=== PATIENT | female | born 1965 | race Caucasian/White ===

== ENCOUNTER 2019-05-08 06:49 | Outpatient (CLI) | payer BC, SELFPAY ==
--- NOTE | 2019-05-08 07:01 | ECG_ITS ---
NAME OF STUDY: LEXISCAN SESTAMIBI STRESS TEST INDICATION: Chest Pain, NOTE: Please note that this is the electrocardiogram portion of the Lexiscan/Sestamibi stress test. The perfusion scan will be documented separately. DATA: Baseline heart rate was 89 beats per minute. Baseline blood pressure was 153/84 millimeters of mercury. Target heart rate was 165. Maximum heart rate achieved was 118. which was 71 % of the predicted target heart rate. Maximum blood pressure was 186/90 millimeters of mercury. The reason for ending the test was completion of the protocol. The patient spit and shortness of breath which was then resolved before discharge. ELECTROCARDIOGRAM: BASELINE: Sinus rhythm. Normal axis. Otherwise, no ST-T changes suggestive of ischemia noted. No arrhythmia noted. EXERCISE: After Lexiscan injection, no ST-T changes suggestive of ischemic noted. No arrhythmia noted. 1. EKG not suggestive of ischemia 2. Lexiscan injection unremarkable. 3. Perfusion scan will be documented separately. Electronically Signed On 05-09-2019 18:52:17 GREENHOUSE MANAGER by Adria Santillan M.D. [id number]
--- NOTE | 2019-05-08 07:02 | NMCV_ITS ---
NM danay perf SPECT r/s* [id number] Jyoti Baxter Age: 53 Gender: F : 1965 Exam Date: 05/08/2019 07:59 Ordering Phys: Chely Fermin APN Technologist: LILA Beck Exam Location: [facility] Indications: CHEST PAIN STRESS TEST Please see separate [facility] for full findings IMAGE PROTOCOL Rest/Stress 1 Lexiscan Day Radiopharmaceutical Dose (mCi) Administration Site Administered by Rest: Tc-99m 10.9 IV LILA Beck Sestamibi Stress:Tc-99m 32.9 IV LILA Ramírez Sestamibi Rest: 08-May-2019 60 Discovery 630 Stress: 08-May-2019 30 Discovery 630 0.4mg Lexiscan. Supine position only as patient was unable to lay prone. SPECT RESULTS Technical Quality: Good Raw Data Analysis: Breast attenuation Image Corrections: No attenuation or motion correction applied Summed Stress Score: 3 Summed Rest Score: 0 Summed Difference Score: 3 PERFUSION FINDINGS Small sized perfusion abnormality of mild severity of mid anterior wall on stress images. FUNCTIONAL RESULTS (calculated via Gated SPECT) Stress Image LV EF (%): 83 Stress EDV (mL):71 TID: 0.91 Stress ESV (mL):12 FUNCTIONAL FINDINGS: The left ventricle is normal in size. Transient Ischemia Dilatation of 0.91. There is normal left ventricular systolic function. The left ventricular ejection fraction is normal with a value of 83%. There is normal left ventricular wall thickening. Normal end-diastolic volume of 71 mL and end-systolic volume of 12 mL. IMPRESSIONS 1. Small sized perfusion abnormality of mild severity of mid anterior wall, represents breast attenuation artifact. 2. Overall left ventricular systolic function is normal without regional wall motion abnormalities. 3. The left ventricular ejection fraction is normal with a value of 83%. 4. This study suggests a low likelihood of angiographically significant coronary artery disease. 5. No prior similar studies to compare. Clementine Miramontes MD (Electronically Signed) Final Date: 11 May 2019 11:16 S
[2019-05-08 07:14] VITALS: BMI 38.7
[2019-05-08] MEDS: regadenoson 0.4 Mg/5 ml Syringe IVP (08:50)
[2019-05-08 09:06] VITALS: BP 126/85; PULSE 95
== END 2019-05-08 06:50 | disposition home or self-care (01) ==
LOC: CDL 06:55
PROVIDERS: Family Provider Nurse Practitioner; Visit Provider Nurse Practitioner
DX: R07.9 Chest pain, unspecified (principal)
CPT/HCPCS: 78452; 93017; A9500; J2785

== ENCOUNTER 2025-02-17 15:37 | Observation (INO) | payer OTHER, SELFPAY ==
[2025-02-17] VITALS (33 sets, daily range): BP systolic 150–205; BP diastolic 84–109; PULSE 76–90; RESP 15–28; TEMP 37; O2SAT 91–98; BMI 39.6
[2025-02-17 16:17] LABS: Hematocrit 49.9 % (36-47); Hemoglobin 16.80 g/dL (11.27-16.99); Mean Corpuscular HGB Conc 33.7 g/dL (30-55); Mean Corpuscular Hemoglobin 32.7 pg (27-33); Mean Corpuscular Volume 97.1 fl (85-98); Nucleated Red Blood Cells % 0 %; Platelet Count 209 10^3/cmm (157-399); Red Blood Count 5.14 10^6/uL (3.85-5.65); White Blood Count 11.17 10^3/uL (3.29-11.43)
--- OUTSIDE RECORDS SUMMARY | 2025-02-17 16:31 | XMS_ITS | Clinical Summary ---
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 Gender Identity Not on file Sexual Orientation Not on file Plan of Treatment Health Maintenance Due Date Last Done Comments DTAP/TDAP/TD VACCINES (1 - Tdap) 08/23/1982 HPV/Cotest (21-29) 08/23/1984 CERVICAL CANCER SCREENING 08/23/1993 HPV/Cotest (30-65) 08/23/1993 PAP SMEAR 08/23/1993 BREAST CANCER SCREENING 2003 COLORECTAL SCREENING 08/23/2008 Colorectal Cancer Screening 08/23/2008 FIT-DNA Q 3 years 08/23/2008 FIT/FOBT Q 1 year 08/23/2008 Flex Sig/CT Colonography Q 5 years 08/23/2008 ZOSTER VACCINE (1 of 2) 08/23/2013 INFLUENZA VACCINE (#1) 2024 RSV VACCINE (60+ or ) (1 - 1-dose 75+ series) 08/23/2038 Insurance [employer] [id number]
[2025-02-17 16:36] LABS: Alanine Aminotransferase 21 U/L (0-33); Albumin Level 4.2 g/dL (3.5-5.2); Alkaline Phosphatase 165 U/L (35-105); Anion Gap 19.4 (5-19); Aspartate Amino Transferase 22 U/L (0-32); Blood Urea Nitrogen 13 mg/dL (8-23); Calcium 9.5 mg/dL (8.5-10.5); Carbon Dioxide 24 mmol/L (22-29); Chloride 98 mmol/L (98-107); Creatinine Clr Calc Pharmacy 103.8052; Globulin 3.2 g/dL (1.3-4.6); Glucose 176 mg/dL (65-115); Lipase 14 U/L (13-60); Osmolality Calculated 288 mOsm/kg (285-295); Potassium 4.4 mmol/L (3.5-5.1); Sodium 137 mmol/L (136-145); Total Protein 7.4 g/dL (6.6-8.7)
--- NOTE | 2025-02-17 16:41 | CTR_ITS ---
PROCEDURE INFORMATION: Exam: CT Abdomen And Pelvis With Contrast Exam date and time: 02/17/2025 4:57 PM Age: 59 years old Clinical indication: Abdominal pain; Additional info: Diffuse abdominal pain, ileocecal colostomy TECHNIQUE: Imaging protocol: Computed tomography of the abdomen and pelvis with contrast. Radiation optimization: All CT scans at this facility use at least one of these dose optimization techniques: automated exposure control; mA and/or kV adjustment per patient size (includes targeted exams where dose is matched to clinical indication); or iterative reconstruction. Contrast material: [id number]; Contrast volume: 100 ml; Contrast route: INTRAVENOUS (IV); COMPARISON: No relevant prior studies available. RADIATION DOSE METRICS: Total DLP (mGy-cm): 913.77 FINDINGS: Lungs: Subsegmental atelectasis at the lung bases. Diaphragm: Small right fat containing Bochdalek hernia. Liver: Unremarkable. No abnormally enhancing liver lesions. Gallbladder and biliary ducts: The gallbladder is distended and there is mild wall thickening with pericholecystic fat stranding. A 4 mm stone is present in the cystic duct. No biliary ductal dilatation. Pancreas: Unremarkable. No ductal dilation. Spleen: Unremarkable. Adrenal glands: The adrenal glands are unremarkable. Kidneys and ureters: Symmetric bilateral renal enhancement. No hydronephrosis. No radiopaque renal or urinary tract stones. Stomach and bowel: Status post colectomy with right lower quadrant ileostomy. Appendix: No evidence of appendicitis. Intraperitoneal space: No ascites or intraperitoneal free air. Vasculature: Atherosclerotic aortoiliac intimal calcifications. Lymph nodes: No abdominal or pelvic adenopathy. Urinary bladder: The urinary bladder is underdistended, limiting its evaluation. Reproductive: Fifth uterus Bones/joints: Thoracolumbar scoliosis. No acute fracture. Soft tissues: Small fat containing parastomal hernia. CT/CT abdomen pelvis w con* [id number] IMPRESSION: Findings compatible with acute cholecystitis, likely secondary to a 4 mm obstructing stone in the cystic duct. Recommend correlation with clinical and laboratory data.
[2025-02-17] MEDS: ondansetron 2 mg/ML SDV 2 mL 4 MG IVP ×2 (16:47→19:07)
--- NOTE | 2025-02-17 16:53 | ED_ITS ---
HPI - Abdominal Pain 2 General: Chief Complaint: Abdominal Pain Stated Complaint: NVD Time Seen by Provider: 02/17/25 16:31 History of Present Illness: Patient is a 59-year-old female with DM, insulin pump, Crohn's disease status post ileostomy without further issues since ileostomy, presents to the emergency room with right lower quadrant, mid umbilicus/periumbilical this, general abdominal pain. Context: Patient stated this started Saturday night, 3 nights ago. She has associated symptoms of nausea, vomiting, which make the pain worse. Her symptoms wax and wane. 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 Ileostomy has increased liquid stools. She has a midline abdominal scar. There has been no blood in her ileostomy. Associated Symptoms: Reports change in stool character, nausea and vomiting; Denies chills, diarrhea and fever(s) Related Data Home Medications ?Medication ?Instructions ?Recorded ?Confirmed albuterol sulfate 90 mcg/actuation inhalation 09/22/23 02/28/24 aerosol inhaler blood sugar diagnostic (Contour #10 ea 09/22/23 Next Test Strips) insulin lispro 100 unit/mL continuous subcutaneous inf usion 09/22/23 02/28/24 subcutaneous solution levothyroxine 137 mcg tablet mcg PO 09/22/23 02/28/24 losartan 50 mg tablet mg PO 09/22/23 02/28/24 meloxicam 15 mg tablet mg PO 09/22/23 02/28/24 tiotropium bromide 2.5 inhalation 09/22/23 02/28/24 mcg/actuation mist for inhalation (Spiriva Respimat) venlafaxine 150 mg mg PO 09/22/23 02/28/24 capsule,extended release 24 hr Previous Rx's ?Medication ?Instructions ?Recorded gabapentin 100 mg capsule 100 mg PO BID #30 caps 09/21 valacyclovir 1 gram tablet 1,000 mg PO TID 10 days #30 tabs 09/22/23 Allergies Allergy/AdvReac Type Severity Reaction Status Date / Time No Known Allergies Allergy Verified 02/17/25 16:02 Review of Systems 2 General: Reports: 10 or more systems reviewed and unremarkable except in HPI and below Const: Denies: fever(s) or chills ENMT: Denies: throat pain, ear or mastoid pain, nasal discharge, nasal congestion or sinus pain Card: Denies: chest pain Resp: Denies: dyspnea, non-productive cough or wheezing GI: Reports: abdominal pain, nausea, vomiting and change in stool character; Denies: diarrhea : Denies: flank pain or difficulty voiding Musc: Reports: joint stiffness; Denies: neck pain, back pain or extremity pain Skin/Breast: Denies: rash or pruritus Neuro: Denies: headache(s) or numbness in extremities Psych: Denies: anxiety, depression or difficulty concentrating PFSH ED 2 PFSH: Social History (Updated 05/08/19 @ 10:12 by Gosia Keyes RN) Smoking and tobacco/nicotine status: never used tobacco/nicotine Alcohol intake: current Alcohol intake frequency: holidays/special occasions only Substance/Drug Use: never Additional social history: Patient states she never smoked. She wants full CODE STATUS as discussed with Rhett Perez MD on 02/17/2025. 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[employer] [place] Physical Exam 2 Const: COMMON NORMALS: no acute distress, patient oriented x3, alert and well nourished HENMT: COMMON NORMALS: normocephalic, atraumatic and external ears normal H EAD & SCALP: normocephalic and atraumatic EXTERNAL EAR: Yes external ears normal Eye: COMMON NORMALS: Equal, round and reactive pupils present and EOMs intact bilaterally PUPIL: Yes Equal, round and reactive pupils present Lymph: LYMPHATIC: no lymphadenopathy noted Resp: COMMON NORMALS: normal respiratory effort and clear to auscultation bilaterally AUSCULTATION: clear to auscultation bilaterally Cardio: COMMON NORMALS: regular rate and regular rhythm RATE: regular rate RHYTHM: regular rhythm GI: COMMON NORMALS: Soft to palpation and No hepatosplenomegaly present I NSPECTION: No Fluid wave present and Yes other (Negative psoas) AUSCULTATION: Yes normoactive bowel sounds and Yes Hyperactive bowel sounds present P ALPATION: Yes Soft to palpation, Yes Tenderness to palpation present (GI) Details: LLQ, RLQ, LUQ and RUQ, Yes Guarding due to palpation present (GI) in the LLQ, in the RLQ, in the LUQ and in the RUQ, No Rigid due to palpation and Yes No hepatosplenomegaly present PERCUSSION: no fluid wave : COMMON NORMALS: Yes no CVA tenderness BLADDER/KIDNEY EXAM: Yes no CVA tenderness Back/Pelvis: COMMON NORMALS: no CVA tenderness Extremity: COMMON NORMALS: normal to inspection, full ROM and capillary refill normal Neuro: COMMON NORMALS: patient oriented x3 SENSORIUM/ORIENTATION: Yes alert SPEECH: speech normal GAIT: Yes Normal gait present Psych: COMMON NORMALS: cooperative Course 2 Reevaluation(s): Reevaluation #1: Improved somewhat after morphine rating pain at approximately 5?6 Reevaluation #2: Updated [facility] already [facility] and is out of beds. Patient declined more morphine Consultations: Consultation #1: [facility] out of beds Consultation #2: [facility]?still awaiting contact[facility] Consultation #3: [facility] stated we do not need ERCP, intraoperative cholangiogram or just remove the gallbladder Additional Consultation(s): [facility], surgeon agreed this could be done locally without intraoperative cholangiogram. Discussed with Dr. Bowen, he has accepted patient, as consultation, patient with history of Crohn's, wanted hospitalist to admit. She also has history of diverting ileostomy due to her Crohn's disease, and has higher risk for open. Discussed with patient. Patient will like to stay here for possible lap eladia with high risk for open Eladia Vital Signs: Vital signs: Vital Signs Temperature 98.6 F 02/17/25 15:58 Pulse Rate 86 02/17/25 23:00 Respiratory Rate 18 02/17/25 23:00 Blood Pressure 176/87 02/17/25 23:00 Pulse Oximetry 96 02/17/25 23:00 Oxygen Delivery Me thod Nasal Cannula 02/17/25 23:00 Oxygen Flow Rate 2 02/17/25 23:00 MDM - Abdominal Pain Medical Decision Making Patient is a pleasant 59-year-old female with history of Crohn's status post ileostomy without further recurrence, presents to the ED with waxing and waning abdominal pain, since Saturday, 3 nights ago, however worse and consistent today. On exam, she is diffusely tender. Initial CBC shows hemoconcentration most likely from her nausea and vomiting. CT of the abdomen and pelvis is pending. IV fluids have been ordered as well as Zofran. Will address narcotic analgesic as necessitated by evaluation. Cholecystitis was noted with cystic duct. Initially discussed with Linda with concern of needing intraoperative cholangiogram. Linda Nunez stated no due to wanting ERCP backup. Discussed with [facility], that [facility] discussed with [facility], Linda Nunez then put me in touch with the surgeon, Dr. Mary, that was happy to accept patient, however believe our surgeon here could handle the issue. Discussed with her surgeon here, Dr. Bowen, that is happy to take the patient as long as patient understands they are higher risk for open cholecystectomy. Patient states understanding, as well, Dr. Mary stated they are just at high risk for open at [facility]. In any event, consultation was excepted, Dr. Bowen did asked that hospitalist primarily admit since patient has history of DM on insulin pump, and previous ileostomy due to Crohn's. Dr. Britton requested Zosyn every 8 hours, morphine every 4 as needed, Zofran every 6 as needed, heparin 5000 units SQ 3 times daily. N.p.o. after midnight, clear liquid diet until then Medical Records I reviewed the patient's medical records. Lab Data I reviewed the patient's lab results. 02/17/25 16:12 02/17/25 16:12 Labs/Radiology: Radiology Impressions Abdomen/Pelvis CT 02/17/25 16:41 IMPRESSION: Findings compatible with acute cholecystitis, likely secondary to a 4 mm obstructing stone in the cystic duct. Recommend correlation with clinical and laboratory data. Abdomen Ultrasound 02/17/25 18:17 IMPRESSION: Findings compatible with acute cholecystitis due to obstructing 5 mm stone in the cystic duct. Laboratory Results WBC 11.17 10^3/uL (3.29-11.43) 02/17/25 16:12 RBC 5.14 10^6/uL (3.85-5.65) 02/17/25 16:12 Hgb 16.80 g/dL (11.27-16.99) 02/17/25 16:12 Hct 49.9 % (36-47) H 02/17/25 16:12 MCV 97.1 fl (85-98) 02/17/25 16:12 MCH 32.7 pg (27-33) 02/17/25 16:12 MCHC 33.7 g/dL (30-55) 02/17/25 16:12 RDW 12.5 % (12.1-15.1) 02/17/25 16:12 Plt Count 209 10^3/cmm (157-399) 02/17/25 16:12 MPV 9.6 fL (7.4-10.4) 02/17/25 16:12 Neut % (Auto) 91.5 % 02/17/25 16:12 Lymph % (Auto) 4.2 % 02/17/25 16:12 [place] % (Auto) 3.2 % 02/17/25 16:12 Eos % (Auto) 0.2 % 02/17/25 16:12 Baso % (Auto) 0.5 % 02/17/25 16:12 Neut # (Auto) 10.22 10^3/uL (1.8-7.7) H 02/17/25 16:12 Lymph # (Auto) 0.5 10^3/uL (0.8-4.8) L 02/17/25 16:12 [place] # (Auto) 0.4 10^3/uL (0.2-0.9) 02/17/25 16:12 Eos # (Auto) 0.0 10^3/uL (0.0-0.8) 02/17/25 16:12 Baso # (Auto) 0.1 10^3/uL (0.0-0.1) 02/17/25 16:12 Nucleated RBC % (auto) 0 % 02/17/25 16:12 Nucleated RBCs # 0.0 /100WBC 02/17/25 16:12 Sodium 137 mmol/L (136-145) 02/17/25 16:12 Potassium 4.4 mmol/L (3.5-5.1) 02/17/25 16:12 Chloride 98 mmol/L (98-107) 02/17/25 16:12 Carbon Dioxide 24 mmol/L (22-29) 02/17/25 16:12 Anion Gap 19.4 (5-19) H 02/17/25 16:12 BUN 13 mg/dL (8-23) 02/17/25 16:12 Creatinine 0.6 mg/dL (0.5-0.9) 02/17/25 16:12 GFR Calculation 101.6 mL/min (90-130) 02/17/25 16:12 Glucose 176 mg/dL (65-115) H 02/17/25 16:12 POC Glucose 142 mg/dL (70-110) H 02/17/25 19:02 Calculated Osmolality 288 mOsm/kg (285-295) 02/17/25 16:12 Calcium 9.5 mg/dL (8.5-10.5) 02/17/25 16:12 Total Bilirubin 1.1 mg/dL (0.15-1.2) 02/17/25 16:12 AST 22 U/L (0-32) 02/17/25 16:12 ALT 21 U/L (0-33) 02/17/25 16:12 Alkaline Phosphatase 165 U/L (35-105) H 02/17/25 16:12 Total Protein 7.4 g/dL (6.6-8.7) 02/17/25 16:12 Albumin 4.2 g/dL (3.5-5.2) 02/17/25 16:12 Globulin 3.2 g/dL (1.3-4.6) 02/17/25 16:12 Lipase 14 U/L (13-60) 02/17/25 16:12 Urine Color Yellow (Yellow) 02/17/25 17:18 Urine Appearance Clear (CLEAR) 02/17/25 17:18 Urine pH 5.5 (5-7) 02/17/25 17:18 Ur Specific [place] 1.065 (1.005-1.030) H 02/17/25 17:18 Urine Protein 1+ (Negative) A 02/17/25 17:18 Urine Glucose (UA) Negative (Normal) 02/17/25 17:18 Urine Ketones 4+ (Negative) 02/17/25 17:18 Urine Blood Non-haemolysed trace (Negative) 02/17/25 17:18 Urine Nitrate Negative (Negative) 02/17/25 17:18 Urine Bilirubin Negative (Negative) 02/17/25 17:18 Urine Urobilinogen 0.2 mg/dL (Negative) 02/17/25 17:18 Ur Leukocyte Esterase Negative (Negative) 02/17/25 17:18 Urine RBC 0-2 /hpf (0-2) 02/17/25 17:18 Urine WBC 6-10 /hpf (0-5) 02/17/25 17:18 Ur Squamous Epith Cells 0-5 /hpf (0-5) 02/17/25 17:18 Amorphous Sediment Not Reportable 02/17/25 17:18 Urine Bacteria None seen /hpf (NONE) 02/17/25 17:18 Hyaline Casts 0.40 /lpf 02/17/25 17:18 All radiology interpretation(s) finalized by discharge Discharge Plan Discharge Patient Disposition: Admitted As Inpatient Admit Provider: Rhett Perez Clinical Impression: Acute cholecystitis Condition: Stable Discharge Diet: Clear Liquid Discharge Activity: Resume usual activity Coding Level of Care Code ED Production Operator for Kenneth Dixon
[2025-02-17] MEDS: iohexol 350 mg/mL 500 mL Btl (per mL) IV (17:02)
[2025-02-17 17:32] LABS: Glucose Urine UA Negative (Normal); Nitrate Urine Negative (Negative)
[2025-02-17 17:34] LABS: Add Urine Microscopic? YES
[2025-02-17 17:36] LABS: Specific Gravity, Urine 1.065 (1.005-1.030)
[2025-02-17] MEDS: morphine 4 mg/mL SDV 1 mL IVP ×2 (17:56→18:55)
--- NOTE | 2025-02-17 18:17 | USR_ITS ---
PROCEDURE INFORMATION: Exam: US Abdomen, Limited; Right Upper Quadrant Exam date and time: 02/17/2025 6:36 PM Age: 59 years old Clinical indication: Abdominal pain; Epigastric; Additional info: Right upper quadrant abdominal pain TECHNIQUE: Imaging protocol: Real time ultrasound of the abdomen with image documentation. Limited exam focused on the right upper quadrant. COMPARISON: CT abdomen pelvis w con* [id number] 02/17/2025 4:57 PM FINDINGS: Liver: Normal. No masses. Gallbladder: Layering sludge in the gallbladder. The gallbladder wall is thickened up to 6 mm. There is a 5 mm calcified stone in the cystic duct. Positive sonographic Aaron's sign. Biliary ducts: The common bile duct measures 5 mm. No stones. No dilation. Pancreas: Visualized pancreas is unremarkable. Right kidney: Normal. No mass. No hydronephrosis. US/US abdomen limited [id number] IMPRESSION: Findings compatible with acute cholecystitis due to obstructing 5 mm stone in the cystic duct.
[2025-02-17] MEDS: piperacillin-tazobactam 3.375 GM in sodium chloride 0.9% (plus) 50 ML IV (23:04)
--- NOTE | 2025-02-17 23:11 | PM.HP ---
Providers/Chief Complaint Admitting Physician: Rhett Perez MD Primary Care Provider: Elana Israel NP Chief Complaint: NVD History of Present Illness Jyoti Baxter is a 59 year old female comes in with 3 days of nausea vomiting abdominal pain off and on but now worse. She had abdominal pain right upper quadrant on exam and ultrasound shows 4 mm cystic duct stone bilirubin 1.[address] scan done first shows the stone as well. Patient has had history of Crohn's with right lower quadrant ileostomy placed at age 26. She has not had no further recurrence of Crohn's. Dr. Bowen has reviewed the images and is optimistic that the patient can start with a laparoscopic surgery and duct exploration to remove the stone or push the stone into the intestine. There is chance of needing open surgery and patient has been counseled regarding that possibility. Dr. Bowen requested hospitalist to admit the patient. 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 Patient cannot afford continuous blood glucose monitor up until now so uses fingerstick Obesity Patient noted to have her sats drop less than 88% here when she fell asleep so was placed on O2. Patient wonders if she has sleep apnea but notably she also had some pain meds Review of Systems Narrative: General No measured fevers but subjective warm and chilled Cardiovascular no chest pain palpitations or edema she does have dyspnea with walking uphill but denies acute dyspnea with limited stairs. She states she can keep up with other people that are overweight or out of shape. Respiratory some cough and wheezing she has asthma no dysuria hematuria GI as per HPI with nausea vomiting no hematemesis denies diarrhea constipation Neuro no history of seizures or strokes Malignancy history negative Heme no history of blood clots in legs or lungs Psych no hospitalizations for mental health Medications/Allergies Home Medications ?Medication ?Instructions ?Recorded ?Confirmed ?Last Taken ?Type albuterol sulfate 90 mcg/actuation inhalation 09/22/23 02/28/24 Unknown History aerosol inhaler blood sugar diagnostic (Contour #10 ea 09/22/23 02/28/24 Unknown History Next Test Strips) gabapentin 100 mg capsule 100 mg PO BID #30 caps 09/22/23 02/28/24 Unknown Rx insulin lispro 100 unit/mL continuous subcutaneous infusion 09/22/23 02/28/24 Unknown History subcutaneous solution levothyroxine 137 mcg tablet mcg PO 09/22/23 02/28/24 Unknown History losartan 50 mg tablet mg PO 09/22/23 02/28/24 Unknown History meloxicam 15 mg tablet mg PO 09/22/23 02/28/24 Unknown History tiotropium bromide 2.5 inhalation 09/22/23 02/28/24 Unknown History mcg/actuation mist for inhalation (Spiriva Respimat) valacyclovir 1 gram tablet 1,000 mg PO TID 10 days #30 tabs 09/22/23 02/28/24 Unknown Rx venlafaxine 150 mg mg PO 09/22/23 02/28/24 Unknown History capsule,extended release 24 hr Allergies Allergy/AdvReac Type Severity Reaction Status Date / Time No Known Allergies Allergy Verified 02/17/25 16:02 PFSH Acute PFSH: Medical History (Updated 02/17/25 @ 23:23 by Rhett Perez MD) HTN (hypertension) Insulin pump in place Obesity (BMI 30-39.9) Hx of Crohn's disease Diabetes Social History (Updated 02/17/25 @ 23:18 by Rhett Perez MD) Smoking and tobacco/nicotine status: never used tobacco/nicotine Alcohol intake: current Alcohol intake frequency: holidays/special occasions only Substance/Drug Use: never Additional social history: Patient states she never smoked. She wants full CODE STATUS as discussed with Rhett Perez MD on 02/17/2025. 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 [employer] [facility] [place] Vitals/I&O/Wt Last Vital Signs Temp 98.6 F 02/17/25 15:58 Pulse 86 02/17/25 23:00 Resp 18 02/17/25 23:00 BP 176/87 02/17/25 23:00 Pulse Ox 96 02/17/25 23:00 O2 Del Method Nasal Cannula 02/17/25 23:00 O2 Flow Rate 2 02/17/25 23:00 02/17/25 02/17/25 02/18/25 14:59 22:59 06:59 Intake Total 1000 / 1000 Balance 1000 / 1000 Weight last 48 hrs Weight 95.254 kg Physical Exam Narrative: General well-developed well-nourished obese female in no acute cardiopulmonary stress Oropharynx Mallampati 1 no exudate and is have my recumbent position CV regular rate and rhythm no loud murmur Lungs good air movement trace and expiratory wheezes no crackles Abdomen positive bowel tones soft right upper quadrant tenderness noted marked but no rebound Calves trace ankle edema Skin warm and dry Mentation alert and oriented x 3 good historian Data 02/17/25 16:12 02/17/25 16:12 A&P Assessment and plan 1. Acute cholecystitis: Patient admitted with acute cholecystitis and cystic duct stone looks to be fairly distal. Dr. Bowen has requested n.p.o. status with intention to operate in the morning. 4 mm stone anticipated to be managed laparoscopically. Patient has history of abdominal surgery with a vertical incisional scar without keloid formation externally at least 2. Diabetes: Patient will manage this with her insulin pump. Check fingerstick blood glucose here before every meal and nightly as well as as needed 3. Insulin pump in place: Patient will manage her insulin pump 4. Hx of Crohn's disease: Stable not active since age 26 5. Obesity (BMI 30-39.9): Patient on clear liquid diet until n.p.o. after midnight. After that should be on a weight loss diet 1600 yolie daily PDMP PDMP Reviewed: Not Reviewed Attestations Medical Necessity Statement*: Patient admitted to hospital with acute cholecystitis and anticipate hospitalization 2 midnights Coding Level of Care Code 20555 Diagnoses Acute cholecystitis K81.0 Diabetes E11.[address] Z96.41 Hx of Crohn's disease Z87.19 Obesity (BMI 30-39.9) E66.9 Time Spent (min) 75
[2025-02-17] MEDS: metoprolol tartrate 1 mg/1 mL SDV 5 mL 5 MG IVP (23:42)
[2025-02-18] VITALS (32 sets, daily range): BP systolic 95–189; BP diastolic 52–116; PULSE 60–120; RESP 14–24; TEMP 36.7–38.1; O2SAT 91–98
--- NOTE | 2025-02-18 00:39 | PC.NURSE ---
ER; recestelita'd report from [facility] at 00:05, pt arrived via stretcher from ER at 00:38
--- NOTE | 2025-02-18 00:53 | PC.NURSE ---
pt reported having started w stomach pain,n/v since Saturday w freq dry heeves, went on through Saturday. 10pm at night , found old zofran and took old med and it helped. Constant output (have Ileostomy -old Chrons). hx DM , HTN.
[2025-02-18] MEDS: morphine 4 mg/mL SDV 1 mL IVP ×2 (01:10→08:48)
[2025-02-18] MEDS: ondansetron 2 mg/ML SDV 2 mL 4 MG IVP ×3 (01:10→15:03)
--- NOTE | 2025-02-18 04:58 | PC.NURSE ---
pt reported slept well- pain is better 3-4
--- NOTE | 2025-02-18 07:39 | P.PN_ITS ---
Subjective 2 Subjective: Patient is a very pleasant 59 yo female who was seen and examined at bedside on hospital rounds today. Patient is sitting up in bed with continued abdominal pain and nausea. Patient is NPO currently awaiting surgical interventions with cholecystectomy. Patient has stable vital signs with pending labs this morning. Surgical interventions with general surgeon Dr. Bowen. Expect patient to remain inpatient through tonight at least, will review post operatively. Vitals/I&O/Wt Last Vital Signs Temp 98.3 F 02/18/25 04:00 Pulse 88 02/18/25 04:15 Resp 18 02/18/25 04:15 BP 127/68 02/18/25 04:55 Pulse Ox 94 02/18/25 04:15 O2 Del Method Nasal Cannula 02/18/25 04:15 O2 Flow Rate 2 02/18/25 04:15 02/17/25 02/18/25 02/18/25 22:59 06:59 14:59 Intake Total 1000 / 1000 60 / 1060 Balance 1000 / 1000 60 / 1060 Weight last 48 hrs Weight 90.718 kg Weight 90.718 kg Weight 95.254 kg Physical Exam 2 Narrative: General well-developed well-nourished obese female in no acute cardiopulmonary stress Oropharynx Mallampati 1 no exudate and is have my recumbent position CV regular rate and rhythm no loud murmur Lungs good air movement trace and expiratory wheezes no crackles Abdomen positive bowel tones soft right upper quadrant tenderness noted marked but no rebound Calves trace ankle edema Skin warm and dry Mentation alert and oriented x 3 good historian Data 02/17/25 16:12 02/18/25 09:57 A&P Assessment and plan 1. Acute cholecystitis: Patient admitted with acute cholecystitis and cystic duct stone looks to be fairly distal. Dr. Bowen has requested n.p.o. status with intention to operate in the morning. 4 mm stone anticipated to be managed laparoscopically. Patient has history of abdominal surgery with a vertical incisional scar without keloid formation externally at least 2. Diabetes: 3. Insulin pump in place: 4. Hx of Crohn's disease: 5. Obesity (BMI 30-39.9): Plan: Acute Cholecystitis with cystic duct stone (4mm stone) - NPO - Greatly appreciate General surgical consultation with - Laparoscopic cholecystectomy this afternoon - Multi-modal pain control - IV Zosyn q8hr DM-II Neuropathy - Insulin Pump with fingersticks - Continue gabapentin 100mg PO BID - NPO currently, when diet continues will be low fat ADA Hypothyroidism - Continue Levothyroxine 137mcg PO Daily Hypertension - Continue Losartan 50mg Daily - PRN metoprolol Hx of Crohn's Disease - Stable and not active since age 26 - Supportive measures Depression - Stable - Continue Effexor 150mg PO Daily Ashtma Seasonal allergies - PRN Albuterol - Spiriva Daily - Continue Singulair 10mg Nightly Obesity - BMI 37.8 - Lifestyle modifications and weight loss recommended VTE PPX: SCD's GI PPX: PPI Code Status: Full Code PDMP PDMP Reviewed: Not Reviewed Attestations 2 Medical Necessity Statement*: Patient admitted to hospital with acute cholecystitis and anticipate hospitalization 2 midnights Coding Level of Care Code 75690 Diagnoses Acute cholecystitis K81.0 Diabetes E11.[address] Z96.41 Hx of Crohn's disease Z87.19 Obesity (BMI 30-39.9) E66.9
--- NOTE | 2025-02-18 08:25 | PM.CONSULT ---
Providers/Reason For Consult Consulting Physician/Specialty*: Dr. Bowen general surgery Reason for Consult*: Cholecystitis Attending Physician: Lynne Blum NP Primary Care Provider: Elana Israel NP History of Present Illness History of Present Illness Jyoti Baxter is a 59 year old female history of Crohn's status post total colectomy with end ileostomy who was admitted with acute on chronic cholecystitis. Patient reports several months of right upper quadrant pain. Patient is tender right upper quadrant. Patient does have a large midline wound as well as an end ileostomy in the right lower quadrant. Patient is obese. Medications/Allergies Home Medications ?Medication ?Instructions ?Recorded ?Confirmed ?Last Taken ?Type albuterol sulfate 90 mcg/actuation 2 puff inhalation Q4H PRN 09/22/23 02/18/25 02/17/25 10:00 History aerosol inhaler Shortness Of Breath 90 mcg blood sugar diagnostic (Contour #10 ea 09/22/23 02/18/25 Unknown History Next Test Strips) insulin lispro 100 unit/mL See Rx Instructions .Route .COMPLEX 09/22/23 02/18/25 02/18/25 01:21 History subcutaneous solution losartan 50 mg tablet 50 mg PO DAILY 09/22/23 02/18/25 02/17/25 09:00 History meloxicam 15 mg tablet 15 mg PO DAILY 09/22/23 02/18/25 02/17/25 08:00 History 15 tiotropium bromide 2.5 1 inh inhalation DAILY 09/22/23 02/18/25 02/17/25 09:00 History mcg/actuation mist for inhalation 2.5 (Spiriva Respimat) venlafaxine 150 mg 150 mg PO DAILY 09/22/23 02/18/25 02/17/25 09:00 History capsule,extended release 24 hr blood-glucose meter (Accu-Chek 02/18/25 02/18/25 Unknown History Guide Me Glucose Meter) gabapentin 300 mg capsule 300 mg PO BID 02/18/25 02/18/25 02/17/25 History levothyroxine 150 mcg tablet 1,050 mcg PO QAM 02/18/25 02/18/25 02/17/25 History montelukast 10 mg tablet 10 mg PO QPM 12/18/25 12/18/25 12/16/25 History (Singulair) Allergies Allergy/AdvReac Type Severity Reaction Status Date / Time No Known Allergies Allergy Verified 02/17/25 16:02 Current Medications Generic Name Dose Route Start Last Admin Trade Name Freq PRN Reason Stop Dose Admin Heparin Sodium (Porcine) 5,000 unit 02/18/25 05:00 02/18/25 01:09 Heparin 5,000 Unit/Ml Inj 1 Ml SUBCUT Not Given TID GREGORY Lactated Ringer's 1,000 mls @ 125 mls/hr 02/17/25 21:45 02/17/25 21:40 Lactated Ringers IV 125 mls/hr .Q8H GREGORY Administration Ipratropium [place] 0.5 mg 02/18/25 00:00 02/18/25 08:08 Ipratropium 0.5 Mg/2.5 Ml Neb INHALATION 0.5 mg Q4H.RESPIRATORY GREGORY Administration Ketorolac Tromethamine 30 mg 02/18/25 00:59 02/18/25 01:31 Ketorolac 30 Mg/Ml Inj IVP 02/23/25 00:58 30 mg Q6H PRN Administration MODERATE PAIN Losartan Potassium 50 mg 02/18/25 05:00 02/18/25 04:55 Losartan 50 Mg Tablet PO 50 mg DAILY GREGORY Administration Morphine Sulfate 4 mg 02/17/25 22:34 02/18/25 01:10 Morphine 4 Mg/Ml Sdv 1 Ml IVP 4 mg Q4H PRN Administration pain Ondansetron HCl 4 mg 02/17/25 22:34 02/18/25 01:10 Ondansetron 2 Mg/Ml Sdv 2 Ml IVP 4 mg Q6H PRN Administration nause PFSH Acute PFSH: Medical History (Updated 02/18/25 @ 12:07 by Masoud Bowen MD) HTN (hypertension) Insulin pump in place Obesity (BMI 30-39.9) Hx of Crohn's disease Diabetes Social History (Updated 02/17/25 @ 23:18 by Rhett Perez MD) Smoking and tobacco/nicotine status: never used tobacco/nicotine Alcohol intake: current Alcohol intake frequency: holidays/special occasions only Substance/Drug Use: never Additional social history: Patient states she never smoked. She wants full CODE STATUS as discussed with Rhett Perez MD on 02/17/2025. 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 No lymphadenopathy. Heart: Regular rate and rhythm. Abdomen: Soft, tender right upper quadrant. End ileostomy in place right lower quadrant. Large midline wound from open total abdominal colectomy. Data 02/17/25 16:12 02/18/25 09:57 A&P Assessment and plan 1. Acute on chronic cholecystitis: Plan: 59-year-old female admitted with acute on chronic cholecystitis. History of Crohn's disease status post open total colectomy with end ileostomy. I had an extensive discussion with the patient and answered all questions. I have discussed non operative/non procedural options and the patient still decides to proceed (discussion included possibility of cystic duct stent, edge procedure at higher level of care, cholecystostomy tube). Discussed risks and benefits of laparoscopic cholecystectomy possible open and patient decides to proceed. Patient understands that the risks of the surgery include postoperative infection, bleeding, bile leak, incisional hernia, and in very rare instances injuries to the bowel, common bile duct, portal vein, and liver failure. Patient understands that this is going to be a more technically challenging surgery given her prior open colectomy. Patient understands there is a risk of injuring the ileostomy. Patient understands there is a high risk of conversion to an open cholecystectomy. Patient understands that the safest option may include either a bailout procedure (partial cholecystectomy, open fenestrated cholecystectomy) or of the cholecystectomy altogether and the patient agrees to proceed. Family at bedside were all in agreement. PDMP PDMP Reviewed: Not Reviewed Coding Level of Care Code 65781 Diagnoses Acute on chronic cholecystitis K81.2
[2025-02-18] MEDS: pantoprazole 40 mg SDV IVP (08:29)
[2025-02-18] MEDS: venlafaxine ER (24HR) 150 mg Capsule PO (08:29)
[2025-02-18] MEDS: piperacillin-tazobactam 3.375 GM in sodium chloride 0.9% (plus) 50 ML IV ×3 (08:30→22:13)
--- OUTSIDE RECORDS SUMMARY | 2025-02-18 08:42 | XMS_ITS | Clinical Summary ---
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
--- NOTE | 2025-02-18 09:42 | PC.CHAP ---
Pastoral Care Encounter/Spiritual Assessment Type of Contact [] Declined oxygen therapy teacher visit [] Patient/Family/Request visit [] Outpatient visit [] Follow-up visit [] Physician referral [] Code/Alert [] Routine visit [] Staff referral [] Actively dying [] Patient sleeping [] Family support [] [] Out of room [] Palliative care [] [x] Receiving care in room [] Pre-surgical visit [] Trauma [] Long length of stay [] ICU visit [] Other: Relational/Emotional Strength [] Patient feels connected with others/family/visitors/staff [] Distress [] Loneliness/isolation [] Abandonment Spirituality of Patient [] Person of Grazyna [] Attends Presybeterian of their Grazyna [] Believes in Prayer [] Reads Bible or Yarsani materials [] There are Spiritual issues to be addressed Sweep Press Operator Interventions [] Prayer [] Active listening [] Non-anxious presence [] Spiritual/emotional support [] Crisis/trauma care [] Spiritual counseling [] Bereavement support [] Provided bereavement packet [] Provided Bible/devotional materials [] Provided toy/stuffed animal, coloring book to patient or family member [] Provided Communion [] Anointing/Combes [] Salvation [] Completed spiritual assessment [] Other: Impact on Illness or Injury [] Angry [] Fearful [] Anxious [] Often cries [] Exhaustion [] Unable to work [] Unable to attend muslim [] Unable to walk/stand [] Unable to read [] Unable to drive [] Unable to eat/drink [] Unable to sleep [] Unable to be with family [] Patient intubated [] Other: Summary Time spent with patient
[2025-02-18 10:37] LABS: Alanine Aminotransferase 21 U/L (0-33); Albumin Level 3.6 g/dL (3.5-5.2); Alkaline Phosphatase 147 U/L (35-105); Anion Gap 11.0 (5-19); Aspartate Amino Transferase 27 U/L (0-32); Blood Urea Nitrogen 12 mg/dL (8-23); Calcium 8.7 mg/dL (8.5-10.5); Carbon Dioxide 31 mmol/L (22-29); Chloride 99 mmol/L (98-107); Globulin 2.7 g/dL (1.3-4.6); Glucose 93 mg/dL (65-115); Magnesium 2.0 mg/dL (1.7-2.3); Osmolality Calculated 283 mOsm/kg (285-295); Potassium 4.0 mmol/L (3.5-5.1); Sodium 137 mmol/L (136-145); Total Protein 6.3 g/dL (6.6-8.7)
[2025-02-18 12:17] LABS: Hematocrit 46.0 % (36-47); Hemoglobin 15.00 g/dL (11.27-16.99); Mean Corpuscular HGB Conc 32.6 g/dL (30-55); Mean Corpuscular Hemoglobin 33.3 pg (27-33); Mean Corpuscular Volume 102.2 fl (85-98); Nucleated Red Blood Cells % 0 %; Platelet Count 179 10^3/cmm (157-399); Red Blood Count 4.50 10^6/uL (3.85-5.65); White Blood Count 10.39 10^3/uL (3.29-11.43)
--- NOTE | 2025-02-18 14:37 | P.ANESASSM_ITS ---
Pre-Anesthetic Assessment Height/Weight: Height 5 ft 1 in Weight 200 lb Temp Pulse Resp BP Pulse Ox O2 Del Method O2 Flow Rate 98.8 F 76 14 130/71 93 Nasal Cannula 1 02/18/25 11:20 02/18/25 11:20 02/18/25 11:20 02/18/25 11:20 02/18/25 11:20 02/18/25 11:20 02/18/25 11:17 Preop Diagnosis: Acute cholecystitis Operation Date: 02/18/25 15:30 Proposed Procedures p Laparoscopic Cholecystectomy possible open(Not Applicable) - Masoud Bowen MD Was Beta Zohreh taken within 24 hours: N/A Was Clonidine taken within 24 hours: N/A Social No alcohol and No tobacco Exam alert, oriented x 3 and clear to auscultation bilaterally Tachycardic Airway Submandibular: within normal limits Cervical ROM: within normal limits Mallampati: Class III Dentition: full Comments: Comments: Small mouth opening Anesthetic Plan ASA status: 3E Anesthesia: General Other: No prior issues with anesthesia Patient states that she is not eating anything since Saturday but was retching on the floor today History of hypertension on losartan IDDM, patient has an insulin pump adapter on her stomach that she does not want to remove because she does not have a second adapter Currently tachycardic and febrile, temp 100 Labs reviewed from today and acceptable for procedure Plan for GETA with RSI and consider video laryngoscopy Medications/Allergies Home Medications ?Medication ?Instructions ?Recorded ?Confirmed ?Last Taken ?Type albuterol sulfate 90 mcg/actuation 2 puff inhalation Q 4H PRN 09/22/23 02/18/25 02/17/25 10:00 History aerosol inhaler Shortness Of Breath 90 mcg blood sugar diagnostic (Contour #10 ea 09/22/23 Unknown History Next Test Strips) insulin lispro 100 unit/mL See Rx Instructions .Route .COMPLEX 09/22/23 02/18/25 02/18/25 01:21 History subcutaneous solution losartan 50 mg tablet 50 mg PO DAILY 09/22/2302/0102/17/25 09:00 History meloxicam 15 mg tablet 15 mg PO DAILY 09/22/2302/0102/17/25 08:00 History 15 tiotropium bromide 2.5 1 inh inhalation DAILY 09/2102/18/25 02/17/25 09:00 History mcg/actuation mist for inhalation 2.5 (Spiriva Respimat) venlafaxine 150 mg 150 mg PO DAILY 09/22/2302/17/25 09:00 History capsule,extended release 24 hr blood-glucose meter (Accu-Chek 02/18/25 02/18/25 Unkn own History Guide Me Glucose Meter) gabapentin 300 mg capsule 300 mg PO BID 02/18/2502/1802/17/25 History levothyroxine 150 mcg tablet 1,050 mcg PO QAM 02/18/25 02/18/25 02/17/25 History montelukast 10 mg tablet 10 mg PO QPM 02/18/2502/16/25 History (Singulair) Allergies Allergy/AdvReac Type Severity Reaction Status Date / Time No Known Allergies Allergy Verified 02/17/25 16:02 Current Medications Generic Name Dose Route Start Last Admin Trade Name Emmanuelq PRN Reason Stop Dose Admin Gabapentin 100 mg 02/18/25 05:00 02/18/25 08:29 Gabapentin 100 Mg Capsule PO 100 mg On Hold: 02/18/25 14:28 BID GREGORY Administration Comment: Order held by Process Transfer Heparin Sodium (Porcine) 5,000 unit 02/18/25 05:00 02/18/25 12:18 Heparin 5,000 Unit/Ml Inj 1 Ml SUBCUT Not Given On Hold: 02/18/25 14:28 TID GREGORY Comment: Order held by Process Transfer Lactated Ringer's 1,000 mls @ 125 mls/hr 02/17/25 21:45 02/18/25 14:22 Lactated Ringers IV 0 mls/hr On Hold: 02/18/25 14:28 .Q8H GREGORY Infusion Comment: Order held by Process Transfer Piperacillin Sod/Tazobactam 50 mls @ 12.5 mls/hr 02/18/25 07:45 02/18/25 13:04 Sod 3.375 gm/ Sodium Chloride IV Infused Q8H GREGORY Infusion Protocol Ipratropium [place] 0.5 mg 02/18/25 00:00 02/18/25 11:16 Ipratropium 0.5 Mg/2.5 Ml Neb INHALATION 0.5 mg On Hold: 02/18/25 14:28 Q4H.RESPIRATORY GREGORY Administration Comment: Order held by Process Transfer Ketorolac Tromethamine 30 mg 02/18/25 00:59 02/18/25 01:31 Ketorolac 30 Mg/Ml Inj IVP 02/23/25 00:58 30 mg On Hold: 02/18/25 14:28 Q6H PRN Administration Comment: Order held by Process MODERATE PAIN Transfer Levothyroxine Sodium 137 mcg 02/18/25 05:00 02/18/25 08:29 Levothyroxine 137 Mcg Tablet PO 137 mcg On Hold: 02/18/25 14:28 DAILY GREGORY Administration Comment: Order held by Process Transfer Losartan Potassium 50 mg 02/18/25 05:00 02/18/25 04:55 Losartan 50 Mg Tablet PO 50 mg On Hold: 02/18/25 14:28 DAILY GREGORY Administration Comment: Order held by Process Transfer Morphine Sulfate 4 mg 02/17/25 22:34 02/18/25 08:48 Morphine 4 Mg/Ml Sdv 1 Ml IVP 4 mg On Hold: 02/18/25 14:28 Q4H PRN Administration Comment: Order held by Process pain Transfer Ondansetron HCl 4 mg 02/17/25 22:34 02/18/25 08:48 Ondansetron 2 Mg/Ml Sdv 2 Ml IVP 4 mg On Hold: 02/18/25 14:28 Q6H PRN Administration Comment: Order held by Process nause Transfer Pantoprazole Sodium 40 mg 02/18/25 09:00 02/18/25 08:29 Pantoprazole 40 Mg Sdv IVP 40 mg On Hold: 02/18/25 14:28 Q24H GREGORY Administration Comment: Order held by Process Transfer Venlafaxine HCl 150 mg 02/18/25 05:00 02/18/25 08:29 Venlafaxine Er (24hr) 150 Mg Capsule PO 150 mg On Hold: 02/18/25 14:28 DAILY GREGORY Administration Comment: Order held by Process Transfer [facility] Anesthesia Medical History (Updated 02/18/25 @ 12:07 by Masoud Bowen MD) HTN (hypertension) Insulin pump in place Obesity (BMI 30-39.9) Hx of Crohn's disease Diabetes Social History (Updated 02/17/25 @ 23:18 by Rhett Perez MD) Smoking and tobacco/nicotine status: never used tobacco/nicotine Alcohol intake: current Alcohol intake frequency: holidays/special occasions only Substance/Drug Use: never Additional social history: Patient states she never smoked. She wants full CODE STATUS as discussed with Rhett Perez MD on 02/17/2025. 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 [employer] Anesthesia 02/18/25 09:57 02/18/25 09:57 Short CBC 02/17/25 02/18/25 Range/Units 16:12 09:57 WBC 11.17 10.39 (3.29-11.43) 10^3/uL Hgb 16.80 15.00 (11.27-16.99) g/dL Hct 49.9 H 46.0 (36-47) % MCV 97.1 102.2 H D (85-98) fl Plt Count 209 179 (157-399) 10^3/cmm Neut % (Auto) 91.5 87.4 % Neut # (Auto) 10.22 H 9.08 H (1.8-7.7) 10^3/uL BMP 02/17/25 02/18/25 16:12 09:57 Sodium 137 137 Potassium 4.4 4.0 Chloride 98 99 Carbon Dioxide 24 31 H BUN 13 12 Creatinine 0.6 0.6 Glucose 176 H 93 Calcium 9.5 8.7 Liver Function 02/17/25 02/18/25 Range/Units 16:12 09:57 Total Bilirubin 1.1 1.5 H (0.15-1.2) mg/dL AST 22 27 (0-32) U/L ALT 21 21 (0-33) U/L Alkaline Phosphatase 165 H 147 H (35-105) U/L Albumin 4.2 3.6 (3.5-5.2) g/dL Urine 02/17/25 Range/Units 17:18 Urine Color Yellow (Yellow) Urine Appearance Clear (CLEAR) Urine pH 5.5 (5-7) Ur Specific [place] 1.065 H (1.005-1.030) Urine Protein 1+ A (Negative) Urine Glucose (UA) Negative (Normal) Urine Ketones 4+ (Negative) Urine Nitrate Negative (Negative) Urine Bilirubin Negative (Negative) Ur Leukocyte Esterase Negative (Negative) Urine RBC 0-2 (0-2) /hpf Urine WBC 6-10 (0-5) /hpf Cardiac Studies: 2 Sestamibi Stress Test (Cardiology) 05/07
[2025-02-18] MEDS: lidocaine-epi 1% PF 1:200,000 30 mL SDV INJECTION (16:23)
--- NOTE | 2025-02-18 16:32 | P.OP_ITS ---
Operative Report Date of procedure: February 18, 2025 Pre-op diagnosis: Acute on chronic cholecystitis Post-op diagnosis: Acute on chronic cholecystitis. Necrotizing cholecystitis. Cirrhosis. Post-op findings: Multiple adhesions at the midline which were taken down bluntly. Cirrhotic liver encountered. Severe inflammatory changes in the right upper quadrant consistent with necrotizing cholecystitis. Gallbladder densely adhered to the duodenum. Discussed with family who agreed on aborting surgery and pursuing a transfer for placement of percutaneous cholecystostomy tube. Procedure done: Diagnostic laparoscopy Implants: N/A Specimens removed/disposition: N/A Pathology: none sent Surgeon: Masoud Bowen MD Canvas Baster Jumpbasting: N/A Anesthesia: General Estimated blood loss (mL): 10 Complications: N/A Findings: Multiple adhesions at the midline which were taken down bluntly. Cirrhotic liver encountered. Severe inflammatory changes in the right upper quadrant consistent with necrotizing cholecystitis. Gallbladder densely adhered to the duodenum. Discussed with family who agreed on aborting surgery and pursuing a transfer for placement of percutaneous cholecystostomy tube. Condition: stable Disposition: floor Brief History: 59-year-old female who presented with acute on chronic cholecystitis. History of Crohn's disease status post total colectomy with end ileostomy. Discussed risk and benefits and patient agreed to proceed to the OR for laparoscopic cholecystectomy possible open. Patient understood that her surgery would be technically challenging given prior surgical history of total colectomy as well as inflammatory changes secondary to chronic cholecystitis. Patient agreed to proceed with the understanding that surgery could be aborted pending findings. Patient also agreed to a bailout procedure such as a partial cholecystectomy or an open fenestrated cholecystectomy. Procedure: I discussed the risks and benefits of laparoscopic cholecystectomy, possible open, and obtained consent prior to proceeding to the operating room. SCDs were utilized. Prophylactic antibiotics were administered. General anesthesia was induced. A footboard was placed. The patient was placed supine, and was prepped and draped in the usual sterile fashion. Insufflation to 15mmHg was achieved using a Veress needle at Wilkes's point. A 5 mm Optiview port was placed in left upper quadrant. The left upper quadrant was inspected, and no injuries were noted. Veress needle was then removed. Two 5mm ports were placed in the right upper quadrant, and a 12mm working port was placed in the epigastrium. Adhesions were taken down bluntly at the midline in order to place a 12 mm port at the umbilicus. Inspection of the liver revealed early stages of cirrhosis. I then proceeded to visualize the gallbladder fossa. There were severe inflammatory changes in the right upper quadrant with thick adhesions which were taken down bluntly. I was able to visualize the gallbladder which was densely adhered to the duodenum. The gallbladder exhibited changes consistent with necrotizing cholecystitis with a very friable wall. I attempted to dissect the gallbladder off the duodenum gently using an endo Kittner and this was not possible. Given the severe inflammatory changes in the right upper as well as the findings of a cirrhotic liver, I proceeded to pause dissection and discussed with patient's family. I explained that in the setting of a cirrhotic liver and severe inflammatory changes in the right upper quadrant (including findings consistent with necrotizing cholecystitis), the safest option is to abort the surgery and pursue a percutaneous cholecystostomy tube. Also, this avoids the risk of major bleeding in a cirrhotic patient and decompensation of her liver disease. Family were in agreement with this plan. I then proceeded to inspect the abdomen one last time. I confirmed the absence of any iatrogenic injuries in the abdomen as I inspected the small bowel the duodenum and the stomach and the liver. I proceeded to desufflate the abdomen and closed 12-mm ports at the fascial level using 0 Vicryl with a UR 6. Skin was closed using 4-0 Monocryl and glue. The patient woke up from anesthesia without any complications and she was transferred to PACU. Given the complexity of this case as well as the absence of IR at our center, I have already discussed with the hospitalist team who will initiate a transfer to higher level of care for percutaneous cholecystostomy tube placement.
--- NOTE | 2025-02-18 17:30 | ANE.PACU2 ---
Inpatient post-anesthesia follow up: Airway intact: Yes Vital signs: Temperature 98.1 F Pulse Rate 96 Respiratory Rate 18 Blood Pressure 112/71 Pulse Oximetry 98 Oxygen Delivery Me thod Nasal Cannula Oxygen Flow Rate 2 Fraction of Inspir ed Oxygen Hydration adequate: Yes Nausea and vomiting: No Pain level: 1 Mental status: Baseline
[2025-02-18] MEDS: heparin 5,000 unit/mL INJ 1 mL 5000 UNIT SUBCUT (20:23)
[2025-02-19] VITALS (10 sets, daily range): BP systolic 101–114; BP diastolic 58–71; PULSE 68–96; RESP 16–22; TEMP 36.6–36.9; O2SAT 93–99
[2025-02-19] MEDS: piperacillin-tazobactam 3.375 GM in sodium chloride 0.9% (plus) 50 ML IV (06:48)
--- NOTE | 2025-02-19 07:12 | PC.NURSE ---
Notified both Meenakshi JOSEPH and Dr Perez re: Bs for 269 [place] is 57. note given: --> 269-1 06:40 BS is 57. pt asymptomatic. given 2 juices w 3 pkt of sugar. will recheck BS in an hour. IVF: LR at 125 cc per hour. NPO ---pt will be going to [facility] for GI surgery. Report given to next shift day shift nurse.
--- NOTE | 2025-02-19 09:24 | P.DS_ITS ---
Discharge Providers Date of Admission: 02/17/25 22:58 Date of Discharge: February 19, 2025 Attending Provider at Admission: Rhett Perez MD Attending Provider at Discharge: Lynne Blum NP Primary Care Provider: Elana Israel NP Diagnoses at Discharge Discharge Diagnosis 1. Acute cholecystitis: 2. Diabetes: 3. Insulin pump in place: 4. Hx of Crohn's disease: 5. Obesity (BMI 30-39.9): Reason for Visit Reason for Visit: NVD Brief History: Admission: Jyoti Baxter is a 59 year old female comes in with 3 days of nausea vomiting abdominal pain off and on but now worse. She had abdominal pain right upper quadrant on exam and ultrasound shows 4 mm cystic duct stone bilirubin 1.[address] scan done first shows the stone as well. Patient has had history of Crohn's with right lower quadrant ileostomy placed at age 26. She has not had no further recurrence of Crohn's. Dr. Bowen has reviewed the images and is optimistic that the patient can start with a laparoscopic surgery and duct exploration to remove the stone or push the stone into the intestine. There is chance of needing open surgery and patient has been counseled regarding that possibility. Dr. Bowen requested hospitalist to admit the patient. Past surgical history carpal tunnel syndrome bilaterally with surgery #2 ileostomy age 26. Family history diabetes hypertension coronary artery disease mom of heart disease at age 42 with an [place]. 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 Patient cannot afford continuous blood glucose monitor up until now so uses fingerstick. Patient noted to have her sats drop less than 88% here when she fell asleep so was placed on O2. Patient wonders if she has sleep apnea but notably she also had some pain meds. Hospital Course Hospital Course Acute Cholecystitis with cystic duct stone (4mm stone) - NPO - Greatly appreciate General surgical consultation with - Laparoscopic cholecystectomy attempted Per : Multiple adhesions at the midline which were taken down bluntly. Cirrhotic liver encountered. Severe inflammatory changes in the right upper quadrant consistent with necrotizing cholecystitis. Gallbladder densely adhered to the duodenum. Discussed with family who agreed on aborting surgery and pursuing a transfer for placement of percutaneous cholecystostomy tube. - Multi-modal pain control - IV Zosyn q8hr - Pending transfer to [facility] [place], accepting provider Sirena DM-II Neuropathy - SSI, POC - Continue gabapentin 100mg PO BID - NPO currently, when diet continues will be low fat ADA - Hypoglycemic event, given apple juice, hypgylcemia protocols Hypothyroidism - Continue Levothyroxine 137mcg PO Daily Hypertension - Continue Losartan 50mg Daily - PRN metoprolol Hx of Crohn's Disease - Stable and not active since age 26 - Supportive measures Depression - Stable - Continue Effexor 150mg PO Daily Ashtma Seasonal allergies - PRN Albuterol - Spiriva Daily - Continue Singulair 10mg Nightly Obesity - BMI 37.8 - Lifestyle modifications and weight loss recommended VTE PPX: SCD's GI PPX: PPI Code Status: Full Code Transfer: Transferred to [facility], stable condition, n.p.o. for IR consultation with a percutaneous cholecystostomy tube to be placed. All questions and concerns addressed with patient and her family prior to transfer. Physical Exam Narrative: General well-developed well-nourished obese female in no acute cardiopulmonary stress Oropharynx Mallampati 1 no exudate and is have my recumbent position CV regular rate and rhythm no loud murmur Lungs good air movement trace and expiratory wheezes no crackles Abdomen positive bowel tones soft right upper quadrant tenderness noted marked but no rebound Calves trace ankle edema Skin warm and dry Mentation alert and oriented x 3 good historian Discharge Data Studies Completed and Pending Completed Studies During Hospitalization Category Date Time Status CT abdomen pelvis w con* [id number] Stat Cat Scan 02/17/25 16:41 Completed US abdomen limited [id number] Stat Ultrasound 02/17/25 18:17 Completed Radiology Impressions Abdomen/Pelvis CT 02/17/25 16:41 IMPRESSION: Findings compatible with acute cholecystitis, likely secondary to a 4 mm obstructing stone in the cystic duct. Recommend correlation with clinical and laboratory data. Abdomen Ultrasound 02/17/25 18:17 IMPRESSION: Findings compatible with acute cholecystitis due to obstructing 5 mm stone in the cystic duct. Laboratory Results WBC 10.39 10^3/uL (3.29-11.43) 02/18/25 09:57 RBC 4.50 10^6/uL (3.85-5.65) 02/18/25 09:57 Hgb 15.00 g/dL (11.27-16.99) 02/18/25 09:57 Hct 46.0 % (36-47) 02/18/25 09:57 MCV 102.2 fl (85-98) H D 02/18/25 09:57 MCH 33.3 pg (27-33) H 02/18/25 09:57 MCHC 32.6 g/dL (30-55) 02/18/25 09:57 RDW 12.8 % (12.1-15.1) 02/18/25 09:57 Plt Count 179 10^3/cmm (157-399) 02/18/25 09:57 MPV 10.3 fL (7.4-10.4) 02/18/25 09:57 Neut % (Auto) 87.4 % 02/18/25 09:57 Lymph % (Auto) 5.4 % 02/18/25 09:57 [place] % (Auto) 4.5 % 02/18/25 09:57 Eos % (Auto) 1.9 % 02/18/25 09:57 Baso % (Auto) 0.4 % 02/18/25 09:57 Neut # (Auto) 9.08 10^3/uL (1.8-7.7) H 02/18/25 09:57 Lymph # (Auto) 0.6 10^3/uL (0.8-4.8) L 02/18/25 09:57 [place] # (Auto) 0.5 10^3/uL (0.2-0.9) 02/18/25 09:57 Eos # (Auto) 0.2 10^3/uL (0.0-0.8) 02/18/25 09:57 Baso # (Auto) 0.0 10^3/uL (0.0-0.1) 02/18/25 09:57 Nucleated RBC % (auto) 0 % 02/18/25 09:57 Nucleated RBCs # 0.0 /100WBC 02/18/25 09:57 Sodium 137 mmol/L (136-145) 02/18/25 09:57 Potassium 4.0 mmol/L (3.5-5.1) 02/18/25 09:57 Chloride 99 mmol/L (98-107) 02/18/25 09:57 Carbon Dioxide 31 mmol/L (22-29) H 02/18/25 09:57 Anion Gap 11.0 (5-19) 02/18/25 09:57 BUN 12 mg/dL (8-23) 02/18/25 09:57 Creatinine 0.6 mg/dL (0.5-0.9) 02/18/25 09:57 GFR Calculation 101.6 mL/min (90-130) 02/18/25 09:57 Glucose 93 mg/dL (65-115) 02/18/25 09:57 POC Glucose 57 mg/dL (70-110) L 02/19/25 06:27 Calculated Osmolality 283 mOsm/kg (285-295) L 02/18/25 09:57 Calcium 8.7 mg/dL (8.5-10.5) 02/18/25 09:57 Magnesium 2.0 mg/dL (1.7-2.3) 02/18/25 09:57 Total Bilirubin 1.5 mg/dL (0.15-1.2) H 02/18/25 09:57 AST 27 U/L (0-32) 02/18/25 09:57 ALT 21 U/L (0-33) 02/18/25 09:57 Alkaline Phosphatase 147 U/L (35-105) H 02/18/25 09:57 Total Protein 6.3 g/dL (6.6-8.7) L 02/18/25 09:57 Albumin 3.6 g/dL (3.5-5.2) 02/18/25 09:57 Globulin 2.7 g/dL (1.3-4.6) 02/18/25 09:57 Lipase 14 U/L (13-60) 02/17/25 16:12 Urine Color Yellow (Yellow) 02/17/25 17:18 Urine Appearance Clear (CLEAR) 02/17/25 17:18 Urine pH 5.5 (5-7) 02/17/25 17:18 Ur Specific [place] 1.065 (1.005-1.030) H 02/17/25 17:18 Urine Protein 1+ (Negative) A 02/17/25 17:18 Urine Glucose (UA) Negative (Normal) 02/17/25 17:18 Urine Ketones 4+ (Negative) 02/17/25 17:18 Urine Blood Non-haemolysed trace (Negative) 02/17/25 17:18 Urine Nitrate Negative (Negative) 02/17/25 17:18 Urine Bilirubin Negative (Negative) 02/17/25 17:18 Urine Urobilinogen 0.2 mg/dL (Negative) 02/17/25 17:18 Ur Leukocyte Esterase Negative (Negative) 02/17/25 17:18 Urine RBC 0-2 /hpf (0-2) 02/17/25 17:18 Urine WBC 6-10 /hpf (0-5) 02/17/25 17:18 Ur Squamous Epith Cells 0-5 /hpf (0-5) 02/17/25 17:18 Amorphous Sediment Not Reportable 02/17/25 17:18 Urine Bacteria None seen /hpf (NONE) 02/17/25 17:18 Hyaline Casts 0.40 /lpf 02/17/25 17:18 Vitals Last Vital Signs Temp 98.5 F 02/19/25 07:46 Pulse 94 02/19/25 08:00 Resp 18 02/19/25 08:00 BP 114/67 02/19/25 07:46 Pulse Ox 95 02/19/25 08:00 O2 Del Method Nasal Cannula 02/19/25 08:00 O2 Flow Rate 2 02/19/25 08:00 Discharge Plan Discharge Patient Disposition: Xfer Short-Term Hosp Condition: Stable Prescriptions: Continued insulin lispro 100 unit/mL solution See Rx Instructions .ROUTE .COMPLEX Rx Instructions: Use via continuous subcutaneous infusion in insulin pump. Max daily amount of 100 units. Spiriva Respimat 2.5 mcg/actuation mist 1 inh inhalation DAILY (DME) Contour Next Test Strips Strip See Rx Instructions .ROUTE .MEDSUPPLY Qty: 10 Rx Instructions: As directed venlafaxine 150 mg capsule,extended release 24hr 150 mg PO DAILY meloxicam 15 mg tablet 15 mg PO DAILY losartan 50 mg tablet 50 mg PO DAILY albuterol sulfate 90 mcg/actuation HFA aerosol inhaler 2 puff inhalation Q4H PRN (Reason: Shortness Of Breath) (DME) blood-glucose meter [Accu-Chek Guide Me Glucose Mtr] Misc MISCELLANEOUS gabapentin 300 mg capsule 300 mg PO BID montelukast [Singulair] 10 mg Tablet 10 mg PO QPM Held levothyroxine 150 mcg tablet 1,050 mcg PO QAM Hold Instructions: Resume on 03/04/25. Will need dosing verified Discharge Order = DC NOW: Transfer Out of Facility (Order); Ordered 02/19/25 Ordered By: Lynne Blum Referrals: Elana Israel NP [Primary Care Provider, Unknown] - 2 weeks Discharge Diet: As Directed Discharge Activity: Resume usual activity Patient Instructions: Clear Liquid Diet (ED), Acute Wound Care (DC), Abdominal Pain (ED), Post Anesthesia Care, Patient Portal & [place] Instructions Activity Restrictions/Additional Instructions: - Clear liquid diet only until symptoms resolve (abdominal pain, nausea, vomiting) Discharge Attestations Time Spent in Discharge Care*: greater than 30 min Quality Metrics Clinical Quality Measures [ No reported AMI, CVA or VTE this stay] Coding Level of Care Code 05743 Diagnoses Acute cholecystitis K81.0 Diabetes E11.[address] Z96.41 Hx of Crohn's disease Z87.19 Obesity (BMI 30-39.9) E66.9
[2025-02-19] MEDS: pantoprazole 40 mg SDV IVP (09:36)
[2025-02-19] MEDS: HYDROcodone-acetaminophen 5-325 mg Tablet 1 TAB PO (12:30)
--- NOTE | 2025-02-19 13:15 | P.PN_ITS ---
Subjective 2 Subjective: Afebrile Abdomen benign Incisions clean dry intact Vitals/I&O/Wt Last Vital Signs Temp 98.1 F 02/19/25 11:16 Pulse 96 02/19/25 11:38 Resp 18 02/19/25 11:38 BP 112/71 02/19/25 11:16 Pulse Ox 98 02/19/25 11:38 O2 Del Method Nasal Cannula 02/19/25 11:38 O2 Flow Rate 2 02/19/25 11:38 02/18/25 02/19/25 02/19/25 22:59 06:59 14:59 Intake Total 416.667 / 1250.000 50 / 3015.063 2847 / 1050 Output Total 2 / 2 0 / 2 Balance 414.667 / 1248.000 50 / 8396.476 9432 / 1050 Weight last 48 hrs Weight 202 lb Weight 200 lb Weight 200 lb Weight 210 lb Physical Exam 2 Narrative: Chest: Unlabored breathing room air. No lymphadenopathy. Heart: Regular rate and rhythm. Abdomen: Soft, tender right upper quadrant, incisions clean dry intact. Data 02/18/25 09:57 02/18/25 09:57 A&P Assessment and plan 1. Acute on chronic cholecystitis: Plan: 59-year-old female with acute on chronic cholecystitis. History of Crohn's and total colectomy with end ileostomy. Intraoperative findings consistent with cirrhosis and chronic cholecystitis. Given findings surgery was aborted and the plan is for transfer for cholecystostomy tube and treatment with antibiotics. Had an extensive discussion with the patient and answered all of her questions. Patient agrees with this plan. PDMP PDMP Reviewed: Not Reviewed Attestations 2 Medical Necessity Statement*: N/A Coding Level of Care Code 89093 Diagnoses Acute on chronic cholecystitis K81.2
== END 2025-02-19 16:55 | disposition short-term general hospital (02) ==
LOC: ER 23:03 → MEDSURG 23:18
PROVIDERS: Student in an Organized Health Care Education/Training Program; Admitting Provider Internal Medicine; Emergency Provider Physician Assistant; PCP Nurse Practitioner Family; Visit Provider Registered Nurse
PROC: 0FT44ZZ Resection of Gallbladder, Percutaneous Endoscopic Approach (ICD-10-PCS; CPT 47562; principal; 2025-02-18 15:20)
PROC: (CPT 49320; 2025-02-18 15:20)
DX: K81.2 Acute cholecystitis with chronic cholecystitis (principal); E11.9 Type 2 diabetes mellitus without complications; Z96.41 Presence of insulin pump (external) (internal); Z87.19 Personal history of other diseases of the digestive system; E66.9 Obesity, unspecified; Z68.38 Body mass index [BMI] 38.0-38.9, adult; E03.9 Hypothyroidism, unspecified; Z79.891 Long term (current) use of opiate analgesic; R00.0 Tachycardia, unspecified; K21.9 Gastro-esophageal reflux disease without esophagitis
CPT/HCPCS: 49320; 36415; 36416; 74177; 76705; 80053; 81001; 82962; 83690; 83735; 85025; 94640; 94664; 96365; 96372; 96375; 96376; 99285; A4216; G0378; J0131; J1171; J1200; J1644; J1885; J2250; J2270; J2405; J2470; J2543; J2704; J3010; J3490; J7030; J7120; J7644; J9999